=== PATIENT | female | born 1945 | race Caucasian/White ===

== ENCOUNTER 2020-04-23 05:09 | Emergency (ER) | payer MEDICARE ==
--- NOTE | 2020-04-23 05:37 | EDM.PDOC ---
ED HPI GENERAL MEDICAL PROBLEM - General Chief Complaint: Respiratory Problem Stated Complaint: [facility] Time Seen by Provider: 04/23/20 05:31 - History of Present Illness INITIAL COMMENTS - FREE TEXT/NARRATIVE: 74-year-old female presents the emergency room brought in by EMS with worsening cough. [facility] as she has had worsening cough for the last month and she had chest pain yesterday. Patient is not able to give much of a history she answers simple questions. She has schizoaffective disorder bipolar disease posttraumatic stress disorder mixed obsessional thoughts and acts. And sometim es keeping her on task with questions is exceedingly difficult. Her biggest complaint is she cannot clear her throat. She was found to be hypoxic with O2 sats in the 80s on 2 L of room air. She is normally on 2 L of room air. Here in the emergency department she is satting okay on 2 L of room air but she has a really moist cough. Middle Chest Pain Score (Numeric/FACES): 3 - Related Data Allergies Allergy/AdvReac Type Severity Reaction Status Date / Time acyclovir Allergy Severe Cannot Verified 04/23/20 05:27 Remember risperidone [From Risperdal] Allergy Severe Cannot Verified 04/23/20 05:27 Remember Sulfa (Sulfonamide Allergy Severe Cannot Verified 04/23/20 05:27 Antibiotics) Remember sulfamethoxazole Allergy Severe Cannot Verified 04/23/20 05:27 [From Bactrim] Remember trimethoprim [From Bactrim] Allergy Severe Cannot Verified 04/23/20 05:27 Remember Home Meds: Home Meds Albuterol Sulfate [Albuterol Sulfate Hfa] 2 puff INH TID PRN 04/23/20 [History] Benzonatate [Tessalon [place]] 100 mg PO TID PRN 04/23/20 [History] Cefdinir [Omnicef] 300 mg PO Q12H #12 cap 04/23/20 [Rx] Doxycycline Hyclate [Vibramycin] 100 mg PO BID #14 cap 04/23/20 [Rx] Famotidine [Pepcid] 20 mg PO DAILY 04/23/20 [History] Lutein/Minerals/Vit A,C & E [Ocuvite] 1 tab PO DAILY 04/23/20 [History] amLODIPine [Norvasc] 5 mg PO DAILY 04/23/20 [History] Social & Family History - Tobacco Use Smoking Status *Q: Never Smoker - Recreational Drug Use Recreational Drug Use: No ED ROS GENERAL - Review of Systems Review Of Systems: See Below Constitutional: Reports: Fever HEENT: Reports: No Symptoms Respiratory: Reports: Cough, Sputum Cardiovascular: Reports: Chest Pain (By history had chest pain yesterday) GI/Abdominal: Reports: Abdominal Pain. Denies: No Symptoms, Constipation, Diarrhea, Nausea, Vomiting : Reports: No Symptoms Musculoskeletal: Reports: No Symptoms Skin: Reports: No Symptoms Neurological: Reports: Confusion. Denies: Dizziness, Headache Psychiatric: Reports: Agitation ED EXAM, GENERAL - Physical Exam Exam: See Below Exam Limited By: Other (Patient's difficulty cooperating) General Appearance: Alert, No Apparent Distress, Other (She is satting reasonably well on 2 L of O2 at 93% she is afebrile) Eye Exam: Bilateral Eye: Normal Inspection Ears: Normal External Exam, Normal Canal, Hearing Grossly Normal, Normal TMs Nose: Normal Inspection, Normal Mucosa, No Blood Throat/Mouth: Normal Inspection, Normal Lips, Normal Gums, Normal Oropharynx, Normal Voice, No Airway Compromise Head: Atraumatic, Normocephalic Neck: Normal Inspection, Supple, Non-Tender, Full Range of Motion Respiratory/Chest: No Respiratory Distress, Lungs Clear, Normal Breath Sounds Cardiovascular: Normal Peripheral Pulses, Regular Rate, Rhythm, Other (I am uncertain if the patient has a murmur she had a difficulty not talking when I was listening to her) GI/Abdominal: Normal Bowel Sounds, Soft, Other (States she had some tenderness with palpation). No: Guarding, Rigid, Rebound Back Exam: Normal Inspection. No: CVA Tenderness (L), CVA Tenderness (R) Extremities: Normal Inspection, Pedal Edema ( ) EKG INTERPRETATION EKG Date: 04/23/20 Rhythm: NSR Rate (Beats/Min): 55 [place]: Normal P-Wave: Present QRS: Normal ST-T: Other (Nonspecific nondiagnostic changes) QT: Normal Comparison: NA - No Prior EKG EKG Interpretation Comments: Borderline EKG Course - Vital Signs Last Recorded V/S: Last Vital Signs Temp 36.4 C 04/23/20 05:16 Pulse 55 L 04/23/20 05:16 Resp 20 04/23/20 05:16 BP 138/72 04/23/20 05:16 Pulse Ox 92 L 04/23/20 05:45 - Orders/Labs/Meds Orders: Active Orders 24 hr Category Date Time Status EKG Documentation Completion [RC] ASDIRECTED Care 04/23/20 05:30 Active RT Aerosol Therapy [RC] ASDIRECTED Care 04/23/20 05:38 Active Chest 1V Frontal [CR] Stat Exams 04/23/20 05:22 Taken CULTURE BLOOD [BC] Stat Lab 04/23/20 07:05 Ordered CULTURE BLOOD [BC] Stat Lab 04/23/20 07:05 Ordered cefTRIAXone [Rocephin] 2 gm Med 04/23/20 07:15 Active Sodium Chloride 0.9% [Normal Saline] 100 ml IV Q24H Blood Culture x2 Reflex Set [OM.PC] Stat Oth 04/23/20 07:04 Ordered EKG 12 Lead [EK] Stat Ther 04/23/20 05:30 Ordered Medication Orders Ceftriaxone Sodium 2 gm/ (Sodium Chloride) 100 mls @ 200 mls/hr IV Q24H KELLY Last Admin: 04/23/20 07:47 Dose: 200 mls/hr Documented by: TANI Labs: Laboratory Tests 04/23/20 04/23/20 04/23/20 Range/Units 05:10 05:15 05:15 WBC 3.24 L (3.98-10.04) K/mm3 RBC 3.81 L (3.98-5.22) M/mm3 Hgb 10.6 L (11.2-15.7) gm/dl Hct 34.5 (34.1-44.9) % MCV 90.6 (79.4-94.8) fl MCH 27.8 (25.6-32.2) pg MCHC 30.7 L (32.2-35.5) g/dl RDW Std Deviation 61.0 H (36.4-46.3) fL Plt Count 93 L (182-369) K/mm3 MPV 9.9 (9.4-12.3) fl Neut % (Auto) 46.6 (34.0-71.1) % Lymph % (Auto) 38.9 (19.3-51.7) % White % (Auto) 13.0 H (4.7-12.5) % Eos % (Auto) 0.9 (0.7-5.8) Baso % (Auto) 0.3 (0.1-1.2) % Neut # (Auto) 1.51 L (1.56-6.13) K/mm3 Lymph # (Auto) 1.26 (1.18-3.74) K/mm3 White # (Auto) 0.42 H (0.24-0.36) K/mm3 Eos # (Auto) 0.03 L (0.04-0.36) K/mm3 Baso # (Auto) 0.01 (0.01-0.08) K/mm3 Manual Slide Review Abnormal smear Sodium 133 L (136-145) mEq/L Potassium 4.2 (3.5-5.1) mEq/L Chloride 100 (98-107) mEq/L Carbon Dioxide 29 (21-32) mEq/L Anion Gap 8.2 (5-15) BUN 21 H (7-18) mg/dL Creatinine 1.1 H (0.55-1.02) mg/dL Est Cr Clr Drug Dosing 43.28 mL/min Estimated GFR (MDRD) 49 (>60) mL/min BUN/Creatinine Ratio 19.1 H (14-18) Glucose 95 (83-115) mg/dL Calcium 9.2 (8.5-10.1) mg/dL Total Bilirubin 0.3 (0.2-1.0) mg/dL AST 32 (15-37) U/L ALT 34 (14-59) U/L Alkaline Phosphatase 95 (46-116) U/L Troponin I 0.023 (0.00-0.056) ng/mL NT-Pro-B Natriuret Pep (0-125) pg/mL Total Protein 9.9 H (6.4-8.2) g/dl Albumin 1.9 L (3.4-5.0) g/dl Globulin 8.0 gm/dL Albumin/Globulin Ratio 0.2 L (1-2) Lipase (73-393) U/L Urine Color Yellow (Yellow) Urine Appearance Slt cloudy H (Clear) Urine pH 6.5 (5.0-8.0) Ur Specific [place] 1.020 (1.005-1.030) Urine Protein Negative (Negative) Urine Glucose (UA) Negative (Negative) Urine Ketones Negative (Negative) Urine Occult Blood Trace-intact H (Negative) Urine Nitrite Negative (Negative) Urine Bilirubin Negative (Negative) Urine Urobilinogen 0.2 (0.2-1.0) Ur Leukocyte Esterase 2+ H (Negative) Urine RBC Not seen (0-5) /hpf Urine WBC 10-20 H (0-5) /hpf Urine WBC Clumps Rare (NOT SEEN) /hpf Ur Epithelial Cells Not seen (0-5) /hpf Urine Bacteria Few (FEW) /hpf Urine Mucus Not seen (FEW) /hpf 04/23/20 04/23/20 Range/Units 05:15 05:15 WBC (3.98-10.04) K/mm3 RBC (3.98-5.22) M/mm3 Hgb (11.2-15.7) gm/dl Hct (34.1-44.9) % MCV (79.4-94.8) fl MCH (25.6-32.2) pg MCHC (32.2-35.5) g/dl RDW Std Deviation (36.4-46.3) fL Plt Count (182-369) K/mm3 MPV (9.4-12.3) fl Neut % (Auto) (34.0-71.1) % Lymph % (Auto) (19.3-51.7) % White % (Auto) (4.7-12.5) % Eos % (Auto) (0.7-5.8) Baso % (Auto) (0.1-1.2) % Neut # (Auto) (1.56-6.13) K/mm3 Lymph # (Auto) (1.18-3.74) K/mm3 White # (Auto) (0.24-0.36) K/mm3 Eos # (Auto) (0.04-0.36) K/mm3 Baso # (Auto) (0.01-0.08) K/mm3 Manual Slide Review Sodium (136-145) mEq/L Potassium (3.5-5.1) mEq/L Chloride (98-107) mEq/L Carbon Dioxide (21-32) mEq/L Anion Gap (5-15) BUN (7-18) mg/dL Creatinine (0.55-1.02) mg/dL Est Cr Clr Drug Dosing mL/min Estimated GFR (MDRD) (>60) mL/min BUN/Creatinine Ratio (14-18) Glucose (83-115) mg/dL Calcium (8.5-10.1) mg/dL Total Bilirubin (0.2-1.0) mg/dL AST (15-37) U/L ALT (14-59) U/L Alkaline Phosphatase (46-116) U/L Troponin I (0.00-0.056) ng/mL NT-Pro-B Natriuret Pep 1265 H (0-125) pg/mL Total Protein (6.4-8.2) g/dl Albumin (3.4-5.0) g/dl Globulin gm/dL Albumin/Globulin Ratio (1-2) Lipase 122 (73-393) U/L Urine Color (Yellow) Urine Appearance (Clear) Urine pH (5.0-8.0) Ur Specific [place] (1.005-1.030) Urine Protein (Negative) Urine Glucose (UA) (Negative) Urine Ketones (Negative) Urine Occult Blood (Negative) Urine Nitrite (Negative) Urine Bilirubin (Negative) Urine Urobilinogen (0.2-1.0) Ur Leukocyte Esterase (Negative) Urine RBC (0-5) /hpf Urine WBC (0-5) /hpf Urine WBC Clumps (NOT SEEN) /hpf Ur Epithelial Cells (0-5) /hpf Urine Bacteria (FEW) /hpf Urine Mucus (FEW) /hpf Meds: Medications Generic Name Dose Route Start Last Admin Trade Name Freq PRN Reason Stop Dose Admin Ceftriaxone Sodium 2 gm/ 100 mls @ 200 mls/hr 04/23/20 07:15 04/23/20 07:47 Sodium Chloride IV 200 mls/hr Q24H KELLY Administration Discontinued Medications Generic Name Dose Route Start Last Admin Trade Name Freq PRN Reason Stop Dose Admin Albuterol/Ipratropium 3 ml 04/23/20 05:38 04/23/20 05:45 Duoneb 3.0-0.5 Mg/3 Ml NEB 04/23/20 05:39 3 ml ONETIME ONE Administration - Re-Assessments/Exams Free Text/Narrative Re-Assessment/Exam: 04/23/20 08:43 Patient's chest x-ray was concerning for atelectasis and infiltrate in both lower lobes right much worse than left. No evidence of pulmonary congestion with her worsening O2 saturation will assume this is developing pneumonia. Her d-dimer is over 1200 I do not have a baseline for her. At this point the patient received a gram of Rocephin after blood cultures obtained. [facility]ip[facility]f. Milligrams twice daily and doxycycline 100 mg twice daily for a week. We did discuss the disposition with [facility] and they advised as he had a code sheet she had a COVID checked on Thursday and this does not need to be repeated. Departure - Departure Time of Disposition: 08:45 Disposition: DC/Tfer to SNF 03 Clinical Impression: Pneumonia - Discharge Information Prescriptions: Cefdinir [Omnicef] 300 mg PO Q12H #12 cap Doxycycline Hyclate [Vibramycin] 100 mg PO BID #14 cap Instructions: Healthcare-Associated Pneumonia, Community-Acquired Pneumonia, Adult Referrals: Matt Rivas MD [Primary Care Provider] - Forms: ED Department Discharge Additional Instructions: Return to the emergency room with any questions problems or worsening symptoms. Take the antibiotics as directed Continue O2 at 2 L/min titrate if less than 92% to keep greater than 92% Follow-up with regular healthcare provider on Thursday or . Hold the lutein minerals and vitamins while the patient is taken doxycycline. Sepsis Event Note (ED) - Evaluation Sepsis Screening Result: No Definite Risk - Focused Exam Vital Signs: Vital Signs Temp Pulse Resp BP Pulse Ox Pulse Ox 04/23/20 05:45 92 L 04/23/20 05:16 36.4 C 55 L 20 138/72 93 L - My Orders Last 24 Hours: My Active Orders 04/23/20 05:22 Chest 1V Frontal [CR] Stat 04/23/20 05:30 EKG Documentation Completion [RC] ASDIRECTED EKG 12 Lead [EK] Stat 04/23/20 05:38 RT Aerosol Therapy [RC] ASDIRECTED 04/23/20 07:04 Blood Culture x2 Reflex Set [OM.PC] Stat 04/23/20 07:05 CULTURE BLOOD [BC] Stat CULTURE BLOOD [BC] Stat 04/23/20 07:15 cefTRIAXone [Rocephin] 2 gm Sodium Chloride 0.9% [Normal Saline] 100 ml IV Q24H - Assessment/Plan Last 24 Hours: My Active Orders 04/23/20 05:22 Chest 1V Frontal [CR] Stat 04/23/20 05:30 EKG Documentation Completion [RC] ASDIRECTED EKG 12 Lead [EK] Stat 04/23/20 05:38 RT Aerosol Therapy [RC] ASDIRECTED 04/23/20 07:04 Blood Culture x2 Reflex Set [OM.PC] Stat 04/23/20 07:05 CULTURE BLOOD [BC] Stat CULTURE BLOOD [BC] Stat 04/23/20 07:15 cefTRIAXone [Rocephin] 2 gm Sodium Chloride 0.9% [Normal Saline] 100 ml IV Q24H
[2020-04-23] MEDS ORDERED: Albuterol/Ipratropium 3.0-0.5 MG/3 ML Neb Soln NEB ONE (05:38)
[2020-04-23] MEDS ORDERED: cefTRIAXone 2 GM in Sodium Chloride 0.9% 100 ML IV SCH (07:15)
--- NOTE | 2020-04-23 13:19 | CR ---
Chest: Portable view of the chest was obtained. Comparison: No previous chest x-ray. Heart size and mediastinum are within normal limits for portable technique. Increased density within both lung bases is noted. Upper lungs are clear. Bony structures are grossly intact. Impression: 1. Increased density within both lung bases. Findings could represent bibasilar atelectasis as well as small bilateral bibasilar areas of pneumonia. Diagnostic code #3 This report was dictated in MDT
== END 2020-04-23 09:27 ==
LOC: JD.ED 05:09
DX: J18.9 Pneumonia, unspecified organism (principal); Z88.8 Allergy status to other drugs, medicaments and biological substances; Z88.2 Allergy status to sulfonamides
CPT/HCPCS: 36415; 71045; 80053; 81001; 83690; 83880; 84484; 85025; 87040; 93005; 94640; 96365; 99284; J0696; J7050; 93010; 99283; J7620-GY

== ENCOUNTER 2020-06-03 18:19 | Emergency (ER) | payer MEDICARE, OTHER ==
[2020-06-03] MEDS ORDERED: Sodium Chloride 0.9% 10 ML Syringe FLUSH PRN (18:32)
[2020-06-03] MEDS ORDERED: Acetaminophen 325 MG Tab PO ONE (18:36)
--- NOTE | 2020-06-03 18:39 | EDM.PDOC ---
<Stan Merrill - Last Filed: 06/03/20 18:42> ED HPI GENERAL MEDICAL PROBLEM - General Chief Complaint: Respiratory Problem Stated Complaint: [facility] Time Seen by Provider: 06/03/20 18:32 Source of Information: Reports: Patient, EMS, Longterm Records History Limitations: Reports: No Limitations - History of Present Illness INITIAL COMMENTS - FREE TEXT/NARRATIVE: The patient presents by [facility] from [facility] for cough, fever, shortness of breath, confusion and body aches. She was checked on but they do not have results back. She was doing good until this afternoon and she got much worse. She is in the correction for geriatric psych issues. She does not smoke. She has no history of asthma or COPD. She did have pneumonia on April 23. She tested negative for COVID at that time. She has a history of schizoaffective disorder, bipolar disorder, post traumatic stress disorder and mixed obsessed thoughts. She was put on oxygen at the correction and her oxygen saturations were in the high 80s. EMS put her on a simple mask and he oxygen saturations were improved to 94%. Her temp was 102 at the correction. Onset: Gradual Duration: Day(s): Severity: Moderate Improves with: Reports: None Worsens with: Reports: None Associated Symptoms: Reports: Cough, Fever/Chills, Headaches, Shortness of Breath. Denies: Chest Pain, Nausea/Vomiting - Related Data Allergies Allergy/AdvReac Type Severity Reaction Status Date / Time acyclovir Allergy Severe Cannot Verified 04/23/20 05:27 Remember risperidone [From Risperdal] Allergy Severe Cannot Verified 04/23/20 05:27 Remember Sulfa (Sulfonamide Allergy Severe Cannot Verified 04/23/20 05:27 Antibiotics) Remember sulfamethoxazole Allergy Severe Cannot Verified 04/23/20 05:27 [From Bactrim] Remember trimethoprim [From Bactrim] Allergy Severe Cannot Verified 04/23/20 05:27 Remember hydroxyzine Allergy Cannot Verified 06/03/20 18:29 Remember Home Meds: Home Meds Albuterol Sulfate [Albuterol Sulfate Hfa] 2 puff INH TID PRN 04/23/20 [History] Benzonatate [Tessalon Perle] 100 mg PO TID PRN 04/23/20 [History] Cefdinir [Omnicef] 300 mg PO Q12H #12 cap 04/23/20 [Rx] Doxycycline Hyclate [Vibramycin] 100 mg PO BID #14 cap 04/23/20 [Rx] Famotidine [Pepcid] 20 mg PO DAILY 04/23/20 [History] Lutein/Minerals/Vit A,C & E [Ocuvite] 1 tab PO DAILY 04/23/20 [History] amLODIPine [Norvasc] 5 mg PO DAILY 04/23/20 [History] Past Medical History HEENT History: Reports: Other (See Below) Other HEENT History: dry eyes Cardiovascular History: Reports: Hypertension Gastrointestinal History: Reports: Chronic Constipation, GERD, Hemorrhoids Genitourinary History: Reports: Other (See Below) Other Genitourinary History: unspecified disorder of urinary system Psychiatric History: Reports: Bipolar, PTSD, Schizophrenia, Other (See Below) Other Psychiatric History: mixed obsessional thoughts and acts Hematologic History: Reports: Anemia, Other (See Below) Other Hematologic History: Vitamin D deficiency ED ROS GENERAL - Review of Systems Review Of Systems: See Below Constitutional: Reports: Fever, Chills HEENT: Reports: No Symptoms Respiratory: Reports: Shortness of Breath, Cough Cardiovascular: Reports: No Symptoms Endocrine: Reports: No Symptoms GI/Abdominal: Reports: No Symptoms : Reports: No Symptoms Musculoskeletal: Reports: No Symptoms Skin: Reports: No Symptoms Neurological: Reports: No Symptoms ED EXAM, GENERAL - Physical Exam Exam: See Below Exam Limited By: No Limitations General Appearance: Alert, No Apparent Distress Ears: Normal External Exam Nose: Normal Inspection Head: Atraumatic, Normocephalic Neck: Normal Inspection, Supple, Non-Tender Respiratory/Chest: No Respiratory Distress, Rhonchi Cardiovascular: Regular Rate, Rhythm, No Edema, No Murmur GI/Abdominal: Soft, Non-Tender, No Organomegaly, No Mass Back Exam: Normal Inspection Extremities: Normal Inspection Course - Re-Assessments/Exams Free Text/Narrative Re-Assessment/Exam: 06/03/20 18:48 I ordered oxygen, CXR, IV saline lock, labs, blood cultures, COVID 19, and lactic acid. It is change of shift. Dr Handy to take over. Departure - Departure Disposition: DC/Tfer to [facility] 02 Clinical Impression: Nosocomial pneumonia - Discharge Information Referrals: Matt Rivas MD [Primary Care Provider] - Forms: ED Department Discharge <Dale Handy - Last Filed: 06/03/20 23:25> ED HPI GENERAL MEDICAL PROBLEM Generalized Pain Score (Numeric/FACES): 8 ED EXAM, GENERAL - Physical Exam Eye Exam: Bilateral Eye: EOMI, Normal Inspection Ears: Hearing Grossly Normal Respiratory/Chest: No Accessory Muscle Use. No: Decreased Breath Sounds, Crackles, Wheezing, Stridor, Prolonged Expiration Cardiovascular: Normal Peripheral Pulses, No Gallop, No JVD Peripheral Pulses: 3+: Radial (L), Radial (R) Extremities: Normal Range of Motion, No Pedal Edema, Normal Capillary Refill Neurological: No Motor/Sensory Deficits Skin Exam: Warm (feels febrile), Intact, Normal Color, No Rash Course - Re-Assessments/Exams Free Text/Narrative Re-Assessment/Exam: 06/03/20 19:54 As above, the patient was brought from [facility] by EMS for a rapid decline in her condition this evening, with a cough, apparent dyspnea, and fever. Here in the ED, she is found to be tachypneic and febrile at 102.7 degrees, with an oxygen saturation of 85% on room air, 95% on 4 L of oxygen per nasal cannula. She has a rattly sounding cough that she does not appear to be clearing well. Her lungs are rhonchorous on auscultation. No other significant findings on examination. A work-up was ordered by Dr. Merrill that includes blood work, 2 sets of blood cultures, an ABG, a portable chest x-ray, and a swab for the SARS-CoV-2 virus. I have added a magnesium level and a urinalysis; Pat BASS informed me that she had cleaned the patient well, and that the patient had voided on her own. 06/03/20 20:25 Portable chest x-ray is read by Dr. Rogers as: 1. Increasing density within both lung bases most likely representing worsening pneumonia. 2. No other acute finding is seen. The patient's CBC is remarkable for thrombocytopenia of 71,000, with the remainder of her CBC being unremarkable. Her CMP is remarkable for a sodium mildly depressed at 132, 8 BUN slightly elevated at 23 with a Cr normal at 1.0, and an AST slightly elevated at 41 with an ALT normal at 34, and the remainder of her CMP being unremarkable. Her magnesium level is within normal limits at 1.8. Her lactic acid level is within normal limits at 0.8. Her CRP is within normal limits at 1.0. Her CPK is within normal limits at 46. Her ferritin is within normal limits at 64. Her LDH is within normal limits at 132. Her D-dimer is modestly elevated at 1.09. Her PT is slightly elevated at 12.1 with an INR of 1.13, and her PTT is mildly elevated at 39. Her ABG represents a mixed mild acute respiratory alkalosis with metabolic alkalosis, and hypoxemia. The patient's urinalysis and a swab for the SARS-CoV-2 virus are still pending. Based on the above, I have ordered a CT angiogram of the chest to evaluate for a pulmonary embolus. The added benefit is a better view of the bibasilar opacities; while the patient has a fever, cough, and worsening bibasilar opacities, she does not have an elevated WBC count or CRP, raising concern about the diagnosis of pneumonia. 06/03/20 20:51 The patient's urinalysis is remarkable for trace occult blood with 10-20 RBCs, 1+ leukocyte esterase with 5-10 WBCs, nitrate negative with few bacteria, and 0- 5 squamous epithelial cells. I have ordered a urine culture, but I do not feel that her urinalysis is consistent enough with a UTI to warrant antibiotic treatment at this time. 06/03/20 22:05 The patient swab for the SARS-CoV-[address] virus has [address] angiogram of the chest is read by Dr. Rogers as: 1. Increased density within both lung bases as well as lesser change within the upper lungs. Findings are most likely infectious in etiology. Please exclude the patient as having Covid-19. 2. No findings of pulmonary embolism are seen. 3. Slightly prominent lymph nodes within the mediastinum most likely reactive. Asymmetric nodule within the inferior left hilar region measuring 2.6 cm. Uncertain if this is due to reactive lymph node or represents neoplastic nodule. Note: If patient's condition improves, recommend repeat chest CT study in 3-4 months. Based on the above, I will start the patient on IV vancomycin, Levaquin, and Zosyn. I believe the patient should be hospitalized, however, we are on complete diversion at this facility, therefore the patient will have to be transferred to [place]. 06/03/20 22:20 Case discussed with Maddy at [facility] at 22:13. Case then discussed with Dr. Dennis, Hospitalist at [facility], at 22:18. She accepted the patient for admission to their facility. The patient will be transported by ground ambulance. 06/03/20 22:38 The portable chest x-ray and CT angiogram of the chest images have been pushed to [facility]. Departure - Departure Time of Disposition: 22:22 Condition: Fair - Discharge Information *PRESCRIPTION DRUG MONITORING PROGRAM REVIEWED*: Not Applicable *COPY OF PRESCRIPTION DRUG MONITORING REPORT IN PATIENT ROBBIN: Not Applicable <Celestine Muñoz - Last Filed: 06/04/20 07:44> Course - Vital Signs Last Recorded V/S: Last Vital Signs Temp 39.9 C H 06/03/20 20:45 Pulse 90 06/03/20 20:45 Resp 24 H 06/03/20 20:45 BP 156/76 H 06/03/20 18:25 Pulse Ox 92 L 06/03/20 20:45 - Orders/Labs/Meds Orders: Active Orders 24 hr Category Date Time Status CULTURE BLOOD [BC] Stat Lab 06/03/20 19:00 Received CULTURE BLOOD [BC] Stat Lab 06/03/20 19:12 Received CULTURE URINE [RM] Stat Lab 06/03/20 19:40 Received Blood Culture x2 Reflex Set [OM.PC] Stat Oth 06/03/20 18:34 Ordered Peripheral IV Insertion Adult [OM.PC] Stat Oth 06/03/20 18:32 Ordered Labs: Laboratory Tests 06/03/20 06/03/20 06/03/20 Range/Units 19:00 19:12 19:12 WBC 4.37 (3.98-10.04) K/mm3 RBC 4.14 (3.98-5.22) M/mm3 Hgb 11.7 (11.2-15.7) gm/dl Hct 36.9 (34.1-44.9) % MCV 89.1 (79.4-94.8) fl MCH 28.3 (25.6-32.2) pg MCHC 31.7 L (32.2-35.5) g/dl RDW Std Deviation 58.5 H (36.4-46.3) fL Plt Count 71 L (182-369) K/mm3 MPV 10.7 (9.4-12.3) fl Neut % (Auto) 80.6 H (34.0-71.1) % Lymph % (Auto) 12.8 L (19.3-51.7) % [place] % (Auto) 5.7 (4.7-12.5) % Eos % (Auto) 0 L (0.7-5.8) Baso % (Auto) 0.2 (0.1-1.2) % Neut # (Auto) 3.52 (1.56-6.13) K/mm3 Lymph # (Auto) 0.56 L (1.18-3.74) K/mm3 [place] # (Auto) 0.25 (0.24-0.36) K/mm3 Eos # (Auto) 0.00 L (0.04-0.36) K/mm3 Baso # (Auto) 0.01 (0.01-0.08) K/mm3 Manual Slide Review Abnormal smear PT 12.1 H (9.7-11.7) SECONDS INR 1.13 APTT 39 H (22-31) SECONDS D-Dimer, Quantitative 1.09 H (0.19-0.50) mg/L Puncture Site Lt radial ABG pH 7.44 (7.35-7.45) ABG pCO2 36.9 (35.0-45.0) mmHg ABG pO2 62.0 L (80.0-100.0) mmHg ABG HCO3 24.7 (22.0-26.0) meq/L ABG O2 Saturation 89.5 L (96.0-97.0) % ABG Base Excess 1.2 (-2-2.0) A-a Gradient 177 mmHg O2 Delivery Device Nasal cannula Oxygen Flow Rate 5.0 FiO2 40.00 (21.00-100.00) % Sodium (136-145) mEq/L Potassium (3.5-5.1) mEq/L Chloride (98-107) mEq/L Carbon Dioxide (21-32) mEq/L Anion Gap (5-15) BUN (7-18) mg/dL Creatinine (0.55-1.02) mg/dL Est Cr Clr Drug Dosing Estimated GFR (MDRD) (>60) mL/min BUN/Creatinine Ratio (14-18) Glucose (83-115) mg/dL Lactic Acid (0.4-2.0) mmol/L Calcium (8.5-10.1) mg/dL Magnesium (1.8-2.4) mg/dl Ferritin (8-252) ng/ml Total Bilirubin (0.2-1.0) mg/dL AST (15-37) U/L ALT (14-59) U/L Alkaline Phosphatase (46-116) U/L Lactate Dehydrogenase (81-234) U/L Creatine Kinase (26-192) U/L C-Reactive Protein (<1.0) mg/dL Total Protein (6.4-8.2) g/dl Albumin (3.4-5.0) g/dl Globulin gm/dL Albumin/Globulin Ratio (1-2) Urine Color (Yellow) Urine Appearance (Clear) Urine pH (5.0-8.0) Ur Specific [place] (1.005-1.030) Urine Protein (Negative) Urine Glucose (UA) (Negative) Urine Ketones (Negative) Urine Occult Blood (Negative) Urine Nitrite (Negative) Urine Bilirubin (Negative) Urine Urobilinogen (0.2-1.0) Ur Leukocyte Esterase (Negative) Urine RBC (0-5) /hpf Urine WBC (0-5) /hpf Ur Squamous Epith Cells (0-5) /hpf Urine Bacteria (FEW) /hpf Urine Mucus (FEW) /hpf SARS-CoV-2 RNA (DENICE) (NEGATIVE) 06/03/20 06/03/20 06/03/20 Range/Units 19:12 19:12 19:12 WBC (3.98-10.04) K/mm3 RBC (3.98-5.22) M/mm3 Hgb (11.2-15.7) gm/dl Hct (34.1-44.9) % MCV (79.4-94.8) fl MCH (25.6-32.2) pg MCHC (32.2-35.5) g/dl RDW Std Deviation (36.4-46.3) fL Plt Count (182-369) K/mm3 MPV (9.4-12.3) fl Neut % (Auto) (34.0-71.1) % Lymph % (Auto) (19.3-51.7) % [place] % (Auto) (4.7-12.5) % Eos % (Auto) (0.7-5.8) Baso % (Auto) (0.1-1.2) % Neut # (Auto) (1.56-6.13) K/mm3 Lymph # (Auto) (1.18-3.74) K/mm3 [place] # (Auto) (0.24-0.36) K/mm3 Eos # (Auto) (0.04-0.36) K/mm3 Baso # (Auto) (0.01-0.08) K/mm3 Manual Slide Review PT (9.7-11.7) SECONDS INR APTT (22-31) SECONDS D-Dimer, Quantitative (0.19-0.50) mg/L Puncture Site ABG pH (7.35-7.45) ABG pCO2 (35.0-45.0) mmHg ABG pO2 (80.0-100.0) mmHg ABG HCO3 (22.0-26.0) meq/L ABG O2 Saturation (96.0-97.0) % ABG Base Excess (-2-2.0) A-a Gradient mmHg O2 Delivery Device Oxygen Flow Rate FiO2 (21.00-100.00) % Sodium 132 L (136-145) mEq/L Potassium 4.1 (3.5-5.1) mEq/L Chloride 99 (98-107) mEq/L Carbon Dioxide 26 (21-32) mEq/L Anion Gap 11.1 (5-15) BUN 23 H (7-18) mg/dL Creatinine 1.0 (0.55-1.02) mg/dL Est Cr Clr Drug Dosing TNP Estimated GFR (MDRD) 55 (>60) mL/min BUN/Creatinine Ratio 23.0 H (14-18) Glucose 98 (83-115) mg/dL Lactic Acid 0.8 (0.4-2.0) mmol/L Calcium 9.1 (8.5-10.1) mg/dL Magnesium (1.8-2.4) mg/dl Ferritin 64 (8-252) ng/ml Total Bilirubin 0.3 (0.2-1.0) mg/dL AST 41 H (15-37) U/L ALT 34 (14-59) U/L Alkaline Phosphatase 107 (46-116) U/L Lactate Dehydrogenase 132 (81-234) U/L Creatine Kinase 46 (26-192) U/L C-Reactive Protein 1.0 (<1.0) mg/dL Total Protein 10.2 H (6.4-8.2) g/dl Albumin 1.9 L (3.4-5.0) g/dl Globulin 8.3 gm/dL Albumin/Globulin Ratio 0.2 L (1-2) Urine Color (Yellow) Urine Appearance (Clear) Urine pH (5.0-8.0) Ur Specific [place] (1.005-1.030) Urine Protein (Negative) Urine Glucose (UA) (Negative) Urine Ketones (Negative) Urine Occult Blood (Negative) Urine Nitrite (Negative) Urine Bilirubin (Negative) Urine Urobilinogen (0.2-1.0) Ur Leukocyte Esterase (Negative) Urine RBC (0-5) /hpf Urine WBC (0-5) /hpf Ur Squamous Epith Cells (0-5) /hpf Urine Bacteria (FEW) /hpf Urine Mucus (FEW) /hpf SARS-CoV-2 RNA (DENICE) (NEGATIVE) 06/03/20 06/03/20 06/03/20 Range/Units 19:12 19:40 19:57 WBC (3.98-10.04) K/mm3 RBC (3.98-5.22) M/mm3 Hgb (11.2-15.7) gm/dl Hct (34.1-44.9) % MCV (79.4-94.8) fl MCH (25.6-32.2) pg MCHC (32.2-35.5) g/dl RDW Std Deviation (36.4-46.3) fL Plt Count (182-369) K/mm3 MPV (9.4-12.3) fl Neut % (Auto) (34.0-71.1) % Lymph % (Auto) (19.3-51.7) % [place] % (Auto) (4.7-12.5) % Eos % (Auto) (0.7-5.8) Baso % (Auto) (0.1-1.2) % Neut # (Auto) (1.56-6.13) K/mm3 Lymph # (Auto) (1.18-3.74) K/mm3 [place] # (Auto) (0.24-0.36) K/mm3 Eos # (Auto) (0.04-0.36) K/mm3 Baso # (Auto) (0.01-0.08) K/mm3 Manual Slide Review PT (9.7-11.7) SECONDS INR APTT (22-31) SECONDS D-Dimer, Quantitative (0.19-0.50) mg/L Puncture Site ABG pH (7.35-7.45) ABG pCO2 (35.0-45.0) mmHg ABG pO2 (80.0-100.0) mmHg ABG HCO3 (22.0-26.0) meq/L ABG O2 Saturation (96.0-97.0) % ABG Base Excess (-2-2.0) A-a Gradient mmHg O2 Delivery Device Oxygen Flow Rate FiO2 (21.00-100.00) % Sodium (136-145) mEq/L Potassium (3.5-5.1) mEq/L Chloride (98-107) mEq/L Carbon Dioxide (21-32) mEq/L Anion Gap (5-15) BUN (7-18) mg/dL Creatinine (0.55-1.02) mg/dL Est Cr Clr Drug Dosing Estimated GFR (MDRD) (>60) mL/min BUN/Creatinine Ratio (14-18) Glucose (83-115) mg/dL Lactic Acid (0.4-2.0) mmol/L Calcium (8.5-10.1) mg/dL Magnesium 1.8 (1.8-2.4) mg/dl Ferritin (8-252) ng/ml Total Bilirubin (0.2-1.0) mg/dL AST (15-37) U/L ALT (14-59) U/L Alkaline Phosphatase (46-116) U/L Lactate Dehydrogenase (81-234) U/L Creatine Kinase (26-192) U/L C-Reactive Protein (<1.0) mg/dL Total Protein (6.4-8.2) g/dl Albumin (3.4-5.0) g/dl Globulin gm/dL Albumin/Globulin Ratio (1-2) Urine Color Yellow (Yellow) Urine Appearance Clear (Clear) Urine pH 7.0 (5.0-8.0) Ur Specific [place] 1.015 (1.005-1.030) Urine Protein Negative (Negative) Urine Glucose (UA) Negative (Negative) Urine Ketones Negative (Negative) Urine Occult Blood Trace-intact H (Negative) Urine Nitrite Negative (Negative) Urine Bilirubin Negative (Negative) Urine Urobilinogen 0.2 (0.2-1.0) Ur Leukocyte Esterase 1+ H (Negative) Urine RBC 10-20 H (0-5) /hpf Urine WBC 5-10 H (0-5) /hpf Ur Squamous Epith Cells 0-5 (0-5) /hpf Urine Bacteria Few (FEW) /hpf Urine Mucus Few (FEW) /hpf SARS-CoV-2 RNA (DENICE) Negative (NEGATIVE) Meds: Medications Discontinued Medications Generic Name Dose Route Start Last Admin Trade Name Freq PRN Reason Stop Dose Admin Acetaminophen 975 mg 06/03/20 18:36 06/03/20 18:59 Tylenol PO 06/03/20 18:37 975 mg NOW ONE Administration Sodium Chloride 1,000 mls @ 150 mls/hr 06/03/20 20:30 06/03/20 20:43 Normal Saline IV 150 mls/hr ASDIRECTED KELLY Administration Vancomycin HCl 1 gm/ Sodium 250 mls @ 250 mls/hr 06/03/20 22:10 06/03/20 23:13 Chloride IV 06/03/20 23:09 250 mls/hr ONETIME STA Administration Levofloxacin/Dextrose 750 mg/ 150 mls @ 100 mls/hr 06/03/20 22:11 06/03/20 23:12 Premix IV 06/03/20 23:40 100 mls/hr ONETIME STA Administration Piperacillin Sod/Tazobactam 100 mls @ 200 mls/hr 06/03/20 22:12 06/03/20 22:41 Sod 4.5 gm/ Sodium Chloride IV 06/03/20 22:41 200 mls/hr ONETIME ONE Administration Sodium Chloride 1,000 mls @ 100 mls/hr 06/03/20 22:15 Normal Saline IV ASDIRECTED KELLY Iopamidol 100 ml 06/03/20 21:44 06/03/20 22:12 Isovue-370 (76%) IVPUSH 06/03/20 21:45 100 ml ONETIME ONE Administration Sodium Chloride 10 ml 06/03/20 18:32 06/03/20 19:00 Saline Flush FLUSH 10 ml ASDIRECTED PRN Administration Keep Vein Open Sodium Chloride 10 ml 06/03/20 21:44 Saline Flush FLUSH 06/03/20 21:45 ONETIME ONE - Re-Assessments/Exams Free Text/Narrative Re-Assessment/Exam: 06/04/20 07:44 Danielito from the lab called over this morning indicates that 1 of the blood cultures done on Katie last night is growing out gram-positive cocci in chains. This information will be forwarded to [facility] in [place] where the patient was transferred to Sepsis Event Note (ED) - Focused Exam Vital Signs: Vital Signs Temp Pulse Resp Pulse Ox 06/03/20 20:45 39.9 C H 90 24 H 92 L
--- NOTE | 2020-06-03 20:19 | CR ---
Chest: Portable view of the chest was obtained. Comparison: Prior chest x-ray of 04/23/20. Increasing density within both lung bases are noted. Findings most likely due to worsening pneumonia. Upper lungs are clear. Heart size and mediastinum are within normal limits for portable technique. Impression: 1. Increasing density within both lung bases most likely representing worsening pneumonia. 2. No other acute finding is seen. Diagnostic code #3 This report was dictated in MDT
[2020-06-03] MEDS ORDERED: Sodium Chloride 0.9% 1,000 ML IV SCH ×2 (20:30→22:15)
[2020-06-03] MEDS ORDERED: Sodium Chloride 0.9% 10 ML Syringe FLUSH ONE (21:44)
[2020-06-03] MEDS ORDERED: Iopamidol 755 Mg/ML 100 ML Bottle IVPUSH ONE (21:44)
--- NOTE | 2020-06-03 22:00 | CT ---
Addendum: Preliminary report by vRalret was finalized on 06/03/20, 10:54 PM [employer]. This was after final report was available. I have reviewed the preliminary report as well as the final report with no significant discrepancy seen between the 2 reports. --- Addendum1 above dictated on [06/04/2020 06:12] by [Margie Rogers, Swapnil Falcon] --- --- Addendum1 above signed on [06/04/2020 06:14] by [Margie Rogers Hilton J.] --- --- Original report below dictated on [06/03/2020 21:55] by [Margie Rogers Hilton J.] --- --- Original report below signed on [06/03/2020 21:56] by [Margie Rogers, Swapnil Falcon] --- CT chest Technique: Multiple axial sections through the chest were obtained. Intravenous contrast was utilized. Reconstructed coronal and sagittal images were obtained. Findings: Pulmonary arteries are moderately well opacified. No filling defects are seen to indicate definite pulmonary embolism. Aorta shows no aneurysm or dissection. Slight adenopathy is seen within the mediastinum most likely reactive. Enlarged nodule is seen within the inferior left hilar region measuring 2.6 cm. Uncertain if this represents reactive enlarged lymph node or represents a neoplastic lymph node. Diffuse parenchymal densities are seen within both lower lungs. Lesser density within the upper lungs are seen. Bone window settings were reviewed which shows no acute osseous finding. Scattered degenerative changes noted within the spine. Impression: 1. Increased density within both lung bases as well as lesser change within the upper lungs. Findings are most likely infectious in etiology. Please exclude the patient as having Covid 19. 2. No findings of pulmonary embolism are seen. 3. Slightly prominent lymph nodes within the mediastinum most likely reactive. Asymmetric nodule within the inferior left hilar region measuring 2.6 cm. Uncertain if this is due to reactive lymph node or represents neoplastic nodule. Note: If patient's condition improves, recommend repeat chest CT study in 3-4 months. Diagnostic code #9 This report was dictated in MDT --- Addendum1 signed ---
[2020-06-03] MEDS ORDERED: Levofloxacin/Dextrose 5%-Water 750 MG in Premix Bag 1 BAG IV STA (22:11)
[2020-06-03] MEDS ORDERED: Piperacillin/Tazobactam 4.5 GM in Sodium Chloride 0.9% 100 ML IV ONE (22:12)
== END 2020-06-03 23:14 ==
LOC: JD.ED 18:19
DX: J18.9 Pneumonia, unspecified organism (principal); I10 Essential (primary) hypertension; K21.9 Gastro-esophageal reflux disease without esophagitis; Z20.828 Contact with and (suspected) exposure to other viral communicable diseases; Z79.899 Other long term (current) drug therapy; Z88.2 Allergy status to sulfonamides; Z88.3 Allergy status to other anti-infective agents; Z88.8 Allergy status to other drugs, medicaments and biological substances; Y95 Nosocomial condition; R06.02 Shortness of breath
CPT/HCPCS: 36415; 36600; 71045; 71275; 80053; 81001; 82550; 82728; 82803; 83605; 83615; 83735; 85025; 85379; 85610; 85730; 86140; 87040; 87077; 87086; 87088; 87181; 87184; 87186; 96361; 96365; 96367; 96368; 99285; A9270; J1956; J2543; J3370; J7030; J7050; Q9967; U0002

== ENCOUNTER 2020-06-24 13:53 | Emergency (ER) | payer MEDICARE, OTHER ==
--- NOTE | 2020-06-24 14:28 | EDM.PDOC ---
ED HPI GENERAL MEDICAL PROBLEM - General Chief Complaint: Lower Extremity Injury/Pain Stated Complaint: FALL Time Seen by Provider: 06/24/20 14:16 Source of Information: Reports: Patient History Limitations: Reports: No Limitations - History of Present Illness INITIAL COMMENTS - FREE TEXT/NARRATIVE: Patient is a 74-year-old female presenting to the ER from [facility] with complaints of pain to her left lower leg after falling in the shower this morning. Patient states that she was reaching for her shampoo and was not holding onto the bar like she normally is and fell. She denies hitting her head. She is not on any blood thinners. She complains of pain to the lateral aspect of her left lower leg directly below the level of the knee. She denies any pain in her upper legs, hips, upper extremities, back, or head. Patient report from the snf, patient is currently in isolation as she was recently discharged from the hospital in [place] for pneumonia. She has not been positive for COVID, however they are doing routine testing on her to ensure she did not bring COVID into the facility. Patient denies any headache or dizziness at this time. She has not ambulated on her leg since the fall, however, she is normally independent with ambulation and cares. Patient has a history of COPD and is on 2L of oxygen by nasal cannula routinely. Signs on triage were found to be normal. Oxygen was 95% on her home 2 L of oxygen, blood pressure 125/62, respiratory rate 18, temperature 97.3, pulse 89. Left Lower Leg Pain Score (Numeric/FACES): 8 - Related Data Allergies Allergy/AdvReac Type Severity Reaction Status Date / Time acyclovir Allergy Severe Cannot Verified 06/24/20 14:12 Remember risperidone [From Risperdal] Allergy Severe Cannot Verified 06/24/20 14:12 Remember Sulfa (Sulfonamide Allergy Severe Cannot Verified 06/24/20 14:12 Antibiotics) Remember sulfamethoxazole Allergy Severe Cannot Verified 06/24/20 14:12 [From Bactrim] Remember trimethoprim [From Bactrim] Allergy Severe Cannot Verified 06/24/20 14:12 Remember hydroxyzine Allergy Cannot Verified 06/24/20 14:12 Remember Home Meds: Home Meds Albuterol Sulfate [Albuterol Sulfate Hfa] 2 puff INH TID PRN 04/23/20 [History] Benzonatate [Tessalon Perle] 100 mg PO TID PRN 04/23/20 [History] Famotidine [Pepcid] 20 mg PO DAILY 04/23/20 [History] Lutein/Minerals/Vit A,C & E [Ocuvite] 1 tab PO DAILY 04/23/20 [History] amLODIPine [Norvasc] 5 mg PO DAILY 04/23/20 [History] Acetaminophen 325 mg PO Q4H PRN 06/24/20 [History] Benzocaine [Anbesol 20% Maximum Strength] 1 applic PO QID PRN 06/24/20 [History] Benzocaine/Menthol [Cepacol Sore Throat Lozenge] 1 mani PO Q2H PRN 06/24/20 [History] Brexpiprazole [Rexulti] 0.5 mg PO DAILY 06/24/20 [History] Calcium Carbonate [Antacid Extra Strength] 300 mg PO DAILY PRN 06/24/20 [Histo ry] Cyanocobalamin (Vitamin B-12) [Vitamin B-12] 100 mcg PO DAILY 06/24/20 [History] Dextromethorphan/guaiFENesin [Robitussin DM] 10 ml PO Q4H PRN 06/24/20 [History] Ferrous Sulfate 325 mg PO DAILY 06/24/20 [History] Fluticasone Propionate [Flonase Allergy Relief] 2 spray NASBOTH DAILY 06/24/20 [History] Furosemide [Lasix] 20 mg PO DAILY 06/24/20 [History] Hydrocortisone 1 enema RECTAL TID PRN 06/24/20 [History] LORazepam [Lorazepam] 0.5 mg PO TID 06/24/20 [History] Losartan [Cozaar] 100 mg PO DAILY 06/24/20 [History] Lytes/Yerba Lillian [Mouthkote Oral Dovray] 2 spray PO Q4H PRN 06/24/20 [History] Magnesium Hydroxide [Milk of Magnesia] 30 ml PO DAILY PRN 06/24/20 [History] Menthol [Biofreeze] 1 applic TOP BID PRN 06/24/20 [History] Multivitamin No.43/Iron/FA [Vinate Care] 1 tab PO DAILY 06/24/20 [History] Oxymetazoline HCl [Nasal Dovray Original] 1 spray JOHANNY TID 06/24/20 [History] Polyvinyl Alcohol/Povidone/Pf [Refresh Classic Eye Drops] 1 drop EYEBOTH BID 06/24/20 [History] Potassium Chloride [Klor-Con M20] 20 meq PO DAILY 06/24/20 [History] QUEtiapine Fumarate [Seroquel] 50 mg PO Q8H PRN 06/24/20 [History] Tamsulosin [Flomax] 0.4 mg PO BEDTIME 06/24/20 [History] Tiotropium [Spiriva HandiHaler] 1 cap INH DAILY 06/24/20 [History] Triamcinolone Acetonide [Triamcinolone Acetonide 0.1% Oint] 1 applic PO Q5H PRN 06/24/20 [History] polyethylene glycoL 3350 [Miralax] 17 gm PO TID PRN 06/24/20 [History] traMADol [Ultram] 50 mg PO BID PRN 06/24/20 [History] Past Medical History HEENT History: Reports: Other (See Below) Other HEENT History: dry eyes, chronic rhinitis Cardiovascular History: Reports: Hypertension Respiratory History: Reports: COPD Gastrointestinal History: Reports: Chronic Constipation, GERD, Hemorrhoids Genitourinary History: Reports: Other (See Below) Other Genitourinary History: unspecified disorder of urinary system Psychiatric History: Reports: Anxiety, Bipolar, PTSD, Schizophrenia, Other (See Below) 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 Denies: Chills, Fever Eyes: Reports: No Symptoms Ears: Reports: No Symptoms Nose: Reports: No Symptoms Mouth/Throat: Reports: No Symptoms Respiratory: Reports: Cough. Denies: Shortness of Breath, Wheezing Cardiovascular: Reports: No Symptoms GI/Abdominal: Reports: No Symptoms Genitourinary: Reports: No Symptoms Musculoskeletal: Reports: Leg Pain (Left lower leg pain) Skin: Reports: No Symptoms Neurological: Reports: No Symptoms Psychiatric: Reports: No Symptoms ED EXAM, GENERAL - Physical Exam Exam: See Below General Appearance: Alert, WD/WN, No Apparent Distress Head: Atraumatic, Normocephalic Neck: Normal Inspection, Supple, Non-Tender, Full Range of Motion Respiratory/Chest: No Respiratory Distress, Lungs Clear, Normal Breath Sounds, No Accessory Muscle Use, Chest Non-Tender Cardiovascular: Normal Peripheral Pulses, Regular Rate, Rhythm, No Edema, No Gallop, No JVD, No Murmur, No Rub GI/Abdominal: Normal Bowel Sounds, Soft, Non-Tender, No Organomegaly, No Distention, No Abnormal Bruit, No Mass Back Exam: Normal Inspection, Full Range of Motion, NT Extremities: Other (Tenderness to palpation of the lateral aspect of the left lower leg directly below the level of the knee. No obvious swelling, deformity, or ecchymosis.) Neurological: Alert, Oriented, CN II-XII Intact, Normal Cognition, Normal Gait, Normal Reflexes, No Motor/Sensory Deficits Psychiatric: Normal Affect, Normal Mood Skin Exam: Warm, Dry, Intact, Normal Color, No Rash Course - Vital Signs Last Recorded V/S: Last Vital Signs Temp 97.3 F 06/24/20 14:07 Pulse 89 06/24/20 14:07 Resp 18 06/24/20 14:07 BP 125/62 06/24/20 14:07 Pulse Ox 95 06/24/20 14:07 - Orders/Labs/Meds Orders: Active Orders 24 hr Category Date Time Status Chest 1V Frontal [CR] Stat Exams 06/24/20 15:18 Taken Knee 3V Lt [CR] Stat Exams 06/24/20 14:22 Taken Tibia Fibula Lt [CR] Stat Exams 06/24/20 14:22 Taken - Re-Assessments/Exams Free Text/Narrative Re-Assessment/Exam: Patient is a 74-year-old female presenting to the emergency department from [facility] with complaints of pain to her left lower leg after falling in the shower. On exam, there is no swelling, edema, or ecchymosis. I ordered a x-ray of her left tib-fib as well as left knee. 06/24/20 15:20 X-rays of the left tib-fib and left knee were negative for any acute abnormalities. Jeet wrap has been applied to the area of discomfort. Patient voiced concern to me that she could be developing a recurrence of her pneumonia as she has had a slight cough for the last 3 days. She was discharged from the hospital at [facility] about 2 weeks ago after being treated for pneumonia. I have ordered a 1 view chest x-ray per patient's request. 06/24/20 15:53 Chest x-ray is significantly improved from previous on June 03. There is some haziness in the left lower lobe it is difficult to determine if this is atelectasis versus residual pneumonia. Patient is afebrile. Her oxygen saturations are normal on her home oxygen of 2 L via nasal cannula. We will discharge her back to longterm facility with instructions to follow-up with her primary care next week to have a repeat chest x-ray done and for ongo ing management. Return to the ER as needed. Departure - Departure Time of Disposition: 15:54 Disposition: Home, Self-Care 01 Condition: Good Clinical Impression: Cough Contusion of leg, left Qualifiers: Encounter type: initial encounter Qualified Code(s): S80.12XA - Contusion of left lower leg, initial encounter - Discharge Information *PRESCRIPTION DRUG MONITORING PROGRAM REVIEWED*: No *COPY OF PRESCRIPTION DRUG MONITORING REPORT IN PATIENT ROBBIN: No Instructions: Contusion, [id number], Cough, Adult Referrals: Tiffany Castellanos NP [Ordering Only Provider] - Forms: ED Department Discharge Additional Instructions: Katie was seen in the emergency department today for left leg pain after falling in the shower. X-rays were completed of the lower leg as well as her knee and found to have no fractures. Jeet wrap has been applied. She may wear this as needed over the next few days for comfort. Patient also complained of a mild cough for the last 2 days. Chest x-ray was completed. Chest x-ray was d rastically improved from her previous x-ray on 03 June, however there was some faint haziness in the left lower lobe. It is difficult to tell if this is residual pneumonia that has not fully resolved as it can take up to 1 month after treatment for pneumonia to resolve on a chest x-ray. Recommend that she follow-up with her primary care provider later next week for reevaluation. She should return to the emergency department for any new or worsening symptoms of concern. Sepsis Event Note (ED) - Evaluation Sepsis Screening Result: No Definite Risk - Focused Exam Vital Signs: Vital Signs Temp Pulse Resp BP Pulse Ox 06/24/20 14:07 97.3 F 89 18 125/62 95 - My Orders Last 24 Hours: My Active Orders 06/24/20 14:22 Knee 3V Lt [CR] Stat Tibia Fibula Lt [CR] Stat 06/24/20 15:18 Chest 1V Frontal [CR] Stat - Assessment/Plan Last 24 Hours: My Active Orders 06/24/20 14:22 Knee 3V Lt [CR] Stat Tibia Fibula Lt [CR] Stat 06/24/20 15:18 Chest 1V Frontal [CR] Stat
== END 2020-06-24 16:10 | disposition home or self-care (01) ==
LOC: JD.ED 13:53
DX: S80.12XA Contusion of left lower leg, initial encounter (principal); R05 Cough; I10 Essential (primary) hypertension; J44.9 Chronic obstructive pulmonary disease, unspecified; K21.9 Gastro-esophageal reflux disease without esophagitis; F31.9 Bipolar disorder, unspecified; F41.9 Anxiety disorder, unspecified; Z88.8 Allergy status to other drugs, medicaments and biological substances; Z88.2 Allergy status to sulfonamides; Z88.1 Allergy status to other antibiotic agents; Z79.899 Other long term (current) drug therapy; W19.XXXA Unspecified fall, initial encounter
CPT/HCPCS: 71045; 73562-LT; 73590-LT; 99282; 99283-25

== ENCOUNTER 2020-06-27 23:26 | Emergency (ER) | payer MEDICARE ==
--- NOTE | 2020-06-27 23:40 | EDM.PDOC ---
ED HPI GENERAL MEDICAL PROBLEM - General Chief Complaint: Lower Extremity Injury/Pain Stated Complaint: [facility] Time Seen by Provider: 06/27/20 23:33 - History of Present Illness INITIAL COMMENTS - FREE TEXT/NARRATIVE: 74-year-old female presents to the emergency room with right ankle and foot pain. Apparently the patient fell several days ago she was seen here and had left lower extremity pain now she is complaining of right foot and ankle pain. This was not evaluated on her visit here several days ago, however, she did not complain of pain in this area. The other areas where she thought were the isolated injuries at her last visit do not seem to be bothering her at this point. Apparently the patient developed some bruising along the inner aspect of her right ankle since the time of her fall. And now she is complaining of pain in the area. She has not had any recent fevers or chills. She has a chronic cough this is unchanged. Left Leg Pain Score (Numeric/FACES): 8 - Related Data Allergies Allergy/AdvReac Type Severity Reaction Status Date / Time acyclovir Allergy Severe Cannot Verified 06/28/20 00:07 Remember hydroxyzine Allergy Severe Cannot Verified 06/28/20 00:07 Remember risperidone [From Risperdal] Allergy Severe Cannot Verified 06/28/20 00:07 Remember Sulfa (Sulfonamide Allergy Severe Cannot Verified 06/28/20 00:07 Antibiotics) Remember sulfamethoxazole Allergy Severe Cannot Verified 06/28/20 00:07 [From Bactrim] Remember trimethoprim [From Bactrim] Allergy Severe Cannot Verified 06/28/20 00:07 Remember Home Meds: Home Meds Albuterol Sulfate [Albuterol Sulfate Hfa] 2 puff INH TID PRN 04/23/20 [History] Benzonatate [Tessalon Perle] 100 mg PO TID PRN 04/23/20 [History] Famotidine [Pepcid] 20 mg PO DAILY 04/23/20 [History] Lutein/Minerals/Vit A,C & E [Ocuvite] 1 tab PO DAILY 04/23/20 [History] amLODIPine [Norvasc] 5 mg PO DAILY 04/23/20 [History] Acetaminophen 325 mg PO Q4H PRN 06/24/20 [History] Benzocaine [Anbesol 20% Maximum Strength] 1 applic PO QID PRN 06/24/20 [History] Brexpiprazole [Rexulti] 1 mg PO DAILY 06/24/20 [History] Calcium Carbonate [Antacid Extra Strength] 300 mg PO DAILY PRN 06/24/20 [History] Cyanocobalamin (Vitamin B-12) [Vitamin B-12] 100 mcg PO DAILY 06/24/20 [History] Dextromethorphan/guaiFENesin [Robitussin DM] 10 ml PO Q4H PRN 06/24/20 [History] Ferrous Sulfate 325 mg PO DAILY 06/24/20 [History] Fluticasone Propionate [Flonase Allergy Relief] 2 spray NASBOTH DAILY 06/24/20 [History] Furosemide [Lasix] 20 mg PO DAILY 06/24/20 [History] Hydrocortisone 1 enema RECTAL TID PRN 06/24/20 [History] LORazepam [Lorazepam] 0.5 mg PO TID 06/24/20 [History] Losartan [Cozaar] 100 mg PO DAILY 06/24/20 [History] Lytes/Yerba Lillian [Mouthkote Oral Jordan] 2 spray PO Q4H PRN 06/24/20 [History] Magnesium Hydroxide [Milk of Magnesia] 30 ml PO DAILY PRN 06/24/20 [History] Menthol [Biofreeze] 1 applic TOP BID PRN 06/24/20 [History] Multivitamin No.43/Iron/FA [Vinate Care] 1 tab PO DAILY 06/24/20 [History] Oxymetazoline HCl [Nasal Jordan Original] 1 spray JOHANNY TID 06/24/20 [History] Polyvinyl Alcohol/Povidone/Pf [Refresh Classic Eye Drops] 1 drop EYEBOTH BID 06/24/20 [History] Potassium Chloride [Klor-Con M20] 20 meq PO DAILY 06/24/20 [History] QUEtiapine Fumarate [Seroquel] 50 mg PO Q8H PRN 06/24/20 [History] Tamsulosin [Flomax] 0.4 mg PO BEDTIME 06/24/20 [History] Tiotropium [Spiriva HandiHaler] 1 cap INH DAILY 06/24/20 [History] Triamcinolone Acetonide [Triamcinolone Acetonide 0.1% Oint] 1 applic PO Q5H PRN 06/24/20 [History] polyethylene glycoL 3350 [Miralax] 17 gm PO TID PRN 06/24/20 [History] traMADol [Ultram] 50 mg PO BID PRN 06/24/20 [History] Past Medical History HEENT History: Reports: Other (See Below) Other HEENT History: dry eyes, chronic rhinitis Cardiovascular History: Reports: Hypertension Respiratory History: Reports: COPD Gastrointestinal History: Reports: Chronic Constipation, GERD, Hemorrhoids Genitourinary History: Reports: Other (See Below) Other Genitourinary History: unspecified disorder of urinary system Psychiatric History: Reports: Anxiety, Bipolar, PTSD, Schizophrenia, Other (See Below) 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 Denies: No Symptoms Cardiovascular: Reports: No Symptoms GI/Abdominal: Reports: No Symptoms Genitourinary: Reports: No Symptoms Musculoskeletal: Reports: Foot Pain (And ankle pain) Skin: Reports: Other ED EXAM, GENERAL - Physical Exam Exam: See Below Exam Limited By: No Limitations General Appearance: Alert, No Apparent Distress Head: Atraumatic, Normocephalic Neck: Normal Inspection, Supple, Non-Tender, Full Range of Motion Respiratory/Chest: No Respiratory Distress, Lungs Clear, Normal Breath Sounds Cardiovascular: Regular Rate, Rhythm, No Edema, No Murmur Extremities: Other (She has some erythematous change on the medial aspect of her ankle and slightly extending up the lower leg. This could be a stasis-like dermatitis does not appear to be cellulitic is not warm I cannot exclude bruising. She has no pain with palpation on the upper calf and into the mid calf she complains of some pain in the lower calf. And certainly no soft tissue tenderness in the upper and mid calf her mid foot is tender with palpation but vaguely so.) Course - Vital Signs Last Recorded V/S: Last Vital Signs Temp 36.4 C 06/27/20 23:33 Pulse 78 06/27/20 23:33 Resp 18 06/27/20 23:33 BP 103/56 L 06/27/20 23:33 Pulse Ox 94 L 06/27/20 23:33 - Orders/Labs/Meds Orders: Active Orders 24 hr Category Date Time Status Ankle Min 3V Rt [CR] Stat Exams 06/27/20 23:41 Taken Foot 2V Rt [CR] Stat Exams 06/27/20 23:41 Taken - Re-Assessments/Exams Free Text/Narrative Re-Assessment/Exam: 06/27/20 23:56 We will x-ray her ankle and foot. 06/28/20 01:16 X-rays of her foot and ankle show no acute changes she does have some significant osteopenia and if she has continued problems perhaps a CT might show what is going on. Apparently the residential staff has some concerns about the possibility of a blood clot. She does not have generalized redness of the lower extremity soft tissue is nontender I think this is highly unlikely. Her redness involves the medial aspect of the ankle but is generally not consistent with a deep vein thrombosis. The redness extends only a few centimeters above the medial malleolus. Patient is ambulated here in the department does okay with this however makes the ankle pain worse. Interestingly when she is not walking on this she has really minimal pain. We will discharge back to the residential at this time. Departure - Departure Time of Disposition: 01:19 Disposition: DC/Tfer to [facility] 03 Clinical Impression: Pain in joint involving right ankle and foot - Discharge Information Forms: ED Department Discharge Additional Instructions: Return to the emergency room with any questions problems or worsening symptoms. Follow-up with your regular healthcare provider in 1 week if needed. Sepsis Event Note (ED) - Focused Exam Vital Signs: Vital Signs Temp Pulse Resp BP Pulse Ox 06/27/20 23:33 36.4 C 78 18 103/56 L 94 L - My Orders Last 24 Hours: My Active Orders 06/27/20 23:41 Ankle Min 3V Rt [CR] Stat Foot 2V Rt [CR] Stat - Assessment/Plan Last 24 Hours: My Active Orders 06/27/20 23:41 Ankle Min 3V Rt [CR] Stat Foot 2V Rt [CR] Stat
== END 2020-06-28 02:15 ==
LOC: JD.ED 23:26
DX: M25.571 Pain in right ankle and joints of right foot (principal); I10 Essential (primary) hypertension; J44.9 Chronic obstructive pulmonary disease, unspecified; K21.9 Gastro-esophageal reflux disease without esophagitis; F31.9 Bipolar disorder, unspecified; F41.9 Anxiety disorder, unspecified; F20.9 Schizophrenia, unspecified; Z88.8 Allergy status to other drugs, medicaments and biological substances; Z88.5 Allergy status to narcotic agent; Z88.2 Allergy status to sulfonamides; Z88.1 Allergy status to other antibiotic agents; Z79.899 Other long term (current) drug therapy
CPT/HCPCS: 73610-RT; 73620-RT; 99282; 99284

== ENCOUNTER 2020-08-06 03:05 | Emergency (ER) | payer MEDICARE ==
--- NOTE | 2020-08-06 03:34 | EDM.PDOC ---
ED HPI GENERAL MEDICAL PROBLEM - General Chief Complaint: Fever Stated Complaint: [facility] Time Seen by Provider: 08/06/20 03:15 Source of Information: Reports: Patient History Limitations: Reports: No Limitations - History of Present Illness INITIAL COMMENTS - FREE TEXT/NARRATIVE: Ms. Gandara is a very pleasant 74-year-old woman who is now brought to the ED by EMS from [facility] for an "increased temp" and lethargy. According to custodial forms, the patient had a temperature of 99.2 degrees, and was lethargic tonight. Residence at [facility] are swabbed for the SARS-CoV-2 virus twice a week; the patient's most recent test from either or Thursday last week has not yet resulted. Here in the ED, the patient is found to be hemodynamically stable, afebrile, saturating 96% on 1.5 L of oxygen per nasal cannula, her norm. She was helped to a bedside commode by Sonja BASS, however, Silvia tells me that the patient was very stable on her feet and did not require any physical assistance. She is not lethargic. The patient tells me that she gets nosebleeds sometimes. Otherwise, she denies having a recent fever, chills, sore throat, ear pain, nasal or sinus congestion, cough, dyspnea, chest pain, palpitations, nausea, vomiting, constipation, diarrhea, abdominal pain, urinary symptoms, recent weight gain or weight loss, recent bloody bowel movements or black bowel movements, recent joint aches, headaches, or rashes. The patient's PCP is Dr. Matt Rivas. - Related Data Allergies Allergy/AdvReac Type Severity Reaction Status Date / Time acyclovir Allergy Severe Cannot Verified 08/06/20 03:09 Remember hydroxyzine Allergy Severe Cannot Verified 08/06/20 03:09 Remember risperidone [From Risperdal] Allergy Severe Cannot Verified 08/06/20 03:09 Remember Sulfa (Sulfonamide Allergy Severe Cannot Verified 08/06/20 03:09 Antibiotics) Remember sulfamethoxazole Allergy Severe Cannot Verified 08/06/20 03:09 [From Bactrim] Remember trimethoprim [From Bactrim] Allergy Severe Cannot Verified 08/06/20 03:09 Remember Home Meds: Home Meds Albuterol Sulfate [Albuterol Sulfate Hfa] 2 puff INH TID PRN 04/23/20 [History] Famotidine [Pepcid] 20 mg PO DAILY 04/23/20 [History] Lutein/Minerals/Vit A,C & E [Ocuvite] 1 tab PO DAILY 04/23/20 [History] amLODIPine [Norvasc] 5 mg PO DAILY 04/23/20 [History] Acetaminophen 650 mg PO Q4H PRN 06/24/20 [History] Benzocaine [Anbesol 20% Maximum Strength] 1 applic PO QID PRN 06/24/20 [History] Brexpiprazole [Rexulti] 4 mg PO DAILY 06/24/20 [History] Cyanocobalamin (Vitamin B-12) [Vitamin B-12] 100 mcg PO DAILY 06/24/20 [History] Dextromethorphan/guaiFENesin [Robitussin DM] 10 ml PO Q4H PRN 06/24/20 [History] Ferrous Sulfate 325 mg PO DAILY 06/24/20 [History] Fluticasone Propionate [Flonase Allergy Relief] 2 spray NASBOTH DAILY 06/24/20 [History] Furosemide [Lasix] 20 mg PO DAILY 06/24/20 [History] Hydrocortisone 1 enema RECTAL TID PRN 06/24/20 [History] LORazepam [Lorazepam] 0.5 mg PO TID 06/24/20 [History] Losartan [Cozaar] 100 mg PO DAILY 06/24/20 [History] Lytes/Yerba Lillian [Mouthkote Oral Bard] 2 spray PO Q4H PRN 06/24/20 [History] Magnesium Hydroxide [Milk of Magnesia] 30 ml PO DAILY PRN 06/24/20 [History] Menthol [Biofreeze] 1 applic TOP BID PRN 06/24/20 [History] Multivitamin No.43/Iron/FA [Vinate Care] 1 tab PO DAILY 06/24/20 [History] Polyvinyl Alcohol/Povidone/Pf [Refresh Classic Eye Drops] 1 drop EYEBOTH BID 06/24/20 [History] Potassium Chloride [Klor-Con M20] 20 meq PO DAILY 06/24/20 [History] Tamsulosin [Flomax] 0.4 mg PO BEDTIME 06/24/20 [History] Tiotropium [Spiriva HandiHaler] 1 cap INH DAILY 06/24/20 [History] Triamcinolone Acetonide [Triamcinolone Acetonide 0.1% Oint] 1 applic PO Q5H PRN 06/24/20 [History] polyethylene glycoL 3350 [Miralax] 17 gm PO TID PRN 06/24/20 [History] traMADol [Ultram] 50 mg PO BID PRN 06/24/20 [History] Benzocaine/Menthol [Cepacol Sore Throat Lozenge] 1 each MM Q2H 08/06/20 [History] Brimonidine [Alphagan P 0.1% Ophth Soln] 1 drop EYEBOTH DAILY PRN 08/06/20 [History] Mag Hydrox/Aluminum Hyd/Simeth [Antacid Liquid] 30 ml PO ASDIRECTED PRN 08/06/20 [History] Metoprolol Succinate [Toprol XL] 25 mg PO DAILY 08/06/20 [History] Past Medical History HEENT History: Reports: Other (See Below) Other HEENT History: dry eyes, chronic rhinitis Cardiovascular History: Reports: Hypertension Respiratory History: Reports: COPD Gastrointestinal History: Reports: Chronic Constipation, GERD, Hemorrhoids Genitourinary History: Reports: Other (See Below) Other Genitourinary History: unspecified disorder of urinary system Psychiatric History: Reports: Anxiety, Bipolar, PTSD, Schizophrenia, Other (See Below) Other Psychiatric History: mixed obsessional thoughts and acts Endocrine/Metabolic History: Reports: Hypokalemia Hematologic History: Reports: Other (See Below) Other Hematologic History: Vitamin D deficiency - Infectious Disease History Infectious Disease History: Reports: Chicken Pox Social & Family History - Family History Family Medical History: No Pertinent Family History - Tobacco Use Tobacco Use Status *Q: Unknown Ever Used Tobacco - Caffeine Use Caffeine Use: Reports: Soda, Tea - Living Situation & Occupation Living situation: Reports: Extended Care Facility ([facility]) Occupation: Retired ED ROS GENERAL - Review of Systems Review Of Systems: Comprehensive ROS is negative, except as noted in HPI. ED EXAM, GENERAL - Physical Exam Exam: See Below Exam Limited By: No Limitations General Appearance: Alert, WD/WN, No Apparent Distress Eye Exam: Bilateral Eye: EOMI, Normal Inspection Ears: Normal External Exam, Hearing Grossly Normal Nose: Normal Inspection Throat/Mouth: Normal Inspection, Normal Lips, Normal Voice, No Airway Compromise Head: Atraumatic, Normocephalic Neck: Normal Inspection, Full Range of Motion Respiratory/Chest: No Respiratory Distress, Lungs Clear, Normal Breath Sounds, No Accessory Muscle Use Cardiovascular: Normal Peripheral Pulses, Regular Rate, Rhythm, No Gallop, No JVD, No Murmur, No Rub Peripheral Pulses: 3+: Radial (L), Radial (R) GI/Abdominal: Normal Bowel Sounds, Soft, Non-Tender, No Organomegaly, No Distention, No Abnormal Bruit, No Mass Back Exam: Normal Inspection, Full Range of Motion, NT Extremities: Normal Inspection, Normal Range of Motion, Normal Capillary Refill Neurological: Alert, Oriented, Normal Cognition, No Motor/Sensory Deficits Psychiatric: Normal Affect Skin Exam: Warm, Dry, Intact, Normal Color, No Rash Course - Vital Signs Last Recorded V/S: Last Vital Signs Temp 37.0 C 08/06/20 03:09 Pulse 80 08/06/20 03:09 Resp 17 08/06/20 03:09 BP 132/71 08/06/20 03:09 Pulse Ox 96 08/06/20 03:09 - Orders/Labs/Meds Orders: Active Orders 24 hr Category Date Time Status Chest 2V [CR] Stat Exams 08/06/20 03:22 Taken Chest w Cont [CT] Stat Exams 08/06/20 05:43 Ordered Head w Cont [CT] Stat Exams 08/06/20 05:53 Ordered UA W/MICROSCOPIC [URIN] Stat Lab 08/06/20 03:22 Ordered Sodium Chloride 0.9% [Normal Saline] 1,000 ml Med 08/06/20 05:45 Active IV ASDIRECTED Medication Orders Sodium Chloride (Normal Saline) 1,000 mls @ 100 mls/hr IV ASDIRECTED KELLY Last Admin: 08/06/20 06:23 Dose: 100 mls/hr Documented by: JENNYFER Labs: Laboratory Tests 08/06/20 08/06/20 Range/Units 03:49 03:49 WBC 4.06 (3.98-10.04) K/mm3 RBC 3.12 L (3.98-5.22) M/mm3 Hgb 8.5 L D (11.2-15.7) gm/dl Hct 27.4 L (34.1-44.9) % MCV 87.8 (79.4-94.8) fl MCH 27.2 (25.6-32.2) pg MCHC 31.0 L (32.2-35.5) g/dl RDW Std Deviation 59.5 H (36.4-46.3) fL Plt Count 56 L (182-369) K/mm3 MPV 10.2 (9.4-12.3) fl Neutrophils % (Manual) 53 (40-60) % Band Neutrophils % 0 (0-10) % Lymphocytes % (Manual) 35 (20-40) % Atypical Lymphs % 3 % Immat Monocytes % (Man) 0 Monocytes % (Manual) 8 (2-10) % Eosinophils % (Manual) 1 (0.7-5.8) % Basophils % (Manual) 0 L (0.1-1.2) Metamyelocytes % 0 Myelocytes % 0 Promyelocytes % 0 Blast Cells % 0 Plasma Cell % (Manual) 0 Nucleated RBCs 0.0 % Platelet Estimate Marked dec Anisocytosis 2+ moderate RBC Morph Comment Not Reportable Sodium 138 (136-145) mEq/L Potassium 4.0 (3.5-5.1) mEq/L Chloride 105 (98-107) mEq/L Carbon Dioxide 23 (21-32) mEq/L Anion Gap 14.0 (5-15) BUN 39 H (7-18) mg/dL Creatinine 1.0 (0.55-1.02) mg/dL Est Cr Clr Drug Dosing TNP Estimated GFR (MDRD) 55 (>60) mL/min BUN/Creatinine Ratio 39.0 H (14-18) Glucose 105 (83-115) mg/dL Calcium 9.3 (8.5-10.1) mg/dL Magnesium 1.9 (1.8-2.4) mg/dl Total Bilirubin 0.3 (0.2-1.0) mg/dL AST 36 (15-37) U/L ALT 24 (14-59) U/L Alkaline Phosphatase 116 (46-116) U/L Total Protein 9.4 H (6.4-8.2) g/dl Albumin 1.5 L (3.4-5.0) g/dl Globulin 7.9 gm/dL Albumin/Globulin Ratio 0.2 L (1-2) Meds: Medications Generic Name Dose Route Start Last Admin Trade Name Kami PRN Reason Stop Dose Admin Sodium Chloride 1,000 mls @ 100 mls/hr 08/06/20 05:45 08/06/20 06:23 Normal Saline IV 100 mls/hr ASDIRECTED [facility] Administration - Re-Assessments/Exams Free Text/Narrative Re-Assessment/Exam: 08/06/20 03:29 I have ordered some blood tests, a urinalysis, and a chest x-ray, to see if anything is abnormal. 08/06/20 05:38 The patient's H/H is depressed at 8.5/27.4, with thrombocytopenia of 56,000. Her BUN is elevated at 39 with a Cr of 1.0. The remainder of her blood tests are unremarkable. 2-view chest radiograph is read by [facility] as: 1. Large left lung mass measuring 3 cm in the left lower lung. CT scan would be helpful to confirm this. 2. COPD. 3. Chronic interstitial lung disease in both lung bases. The patient underwent a chest radiograph on 06/24/2020, however, the left lower opacity was interpreted as an infiltrate at that time. It does not appear that a mass was suspected. I will therefore order a CT of the chest with IV contrast along with some IV fluid. 08/06/20 05:54 Notified that the patient became unresponsive just a few minutes ago. Immediately prior, the patient was conversant, however, she is now unresponsive, with some gurgling breathing. Her oxygen saturation is still 97% on room air, and the patient appears to be breathing well enough, but only with jaw thrust by Sonja BASS - the patient is unable to maintain her own airway if the jaw thrust is not maintained. Both of her pupils are s/p cataract surgery. I am concerned that the patient has suffered a stroke - perhaps a hemorrhage related to a metastasis to the brain. I have therefore ordered a CT of the head with IV contrast. Of note, the patient's medication list does not include an anticoagulant. 08/06/20 06:00 Paperwork from [facility] indicates that she is DNR level 2 = no CPR, no intubation, no mechanical ventilation. Because she is unresponsive, she is not a candidate for BiPAP. I placed a 28 Malay nasopharyngeal airway in her right nostril. 08/06/20 06:15 The nasopharyngeal airway did not appear to be doing anything - she continues to oxygenate well with jaw thrust, but her airway does not remain patent when the jaw thrust is relaxed. I therefore removed the nasopharyngeal airway and placed an oropharyngeal airway. 08/06/20 06:43 The oropharyngeal airway does not appear to be working all that well. We placed a larger oropharyngeal airway, but she is still unable to maintain an airway without a manual jaw thrust. 08/06/20 06:54 Case discussed with Leonor Ulrich, the patient's court-appointed guardian, at 06:44. She stated that the patient has a history of breast cancer, and that there is a "spot" on her lung that there was some speculation could have a been related to her prior breast cancer. She confirmed that the patient is DNR/DNI, that those are the patient's wishes, and that we should not rescind that status. I explained that we will not be able to continue to perform a jaw thrust on the patient indefinitely, and that at some point we will need to stop doing that, which will likely result in the patient's expiring unless she is able to maintain her own airway. Ms. Ulrich expressed understanding. 08/06/20 06:59 At present, the patient's SpO2 is 83% on a non-rebreather mask without jaw th rust. Her oxygen saturation is slowly decreasing. 08/06/20 07:10 I sat with the patient. She became pulseless, then developed an agonal rhythm on the customer service agent with occasional agonal attempts at breathing. She had no heart tones on auscultation and no palpable pulse. No spontaneous efforts at respiration. No response to noxious stimuli. I pronounced the patient at 07:09. 08/06/20 07:15 I notified Ms. Ulrich of the patient's passing. She is in [place], [place], and does not know of any homes in this area. 08/06/20 07:17 Notified by Shakila BASS that paperwork from [facility] indicates a home of choice. Shakila will notify both the home and Ms. Ulrich. Departure - Departure Time of Disposition: 07:18 Disposition: 20 Clinical Impression: Lung tumor, Stroke - Discharge Information *PRESCRIPTION DRUG MONITORING PROGRAM REVIEWED*: Not Applicable *COPY OF PRESCRIPTION DRUG MONITORING REPORT IN PATIENT ROBBIN: Not Applicable Referrals: Matt Rivas MD [Primary Care Provider] - Forms: ED Department Discharge Sepsis Event Note (ED) - Evaluation Sepsis Screening Result: No Definite Risk - Focused Exam Vital Signs: Vital Signs Temp Pulse Resp BP Pulse Ox 08/06/20 03:09 37.0 C 80 17 132/71 96 - My Orders Last 24 Hours: My Active Orders 08/06/20 03:22 Chest 2V [CR] Stat UA W/MICROSCOPIC [URIN] Stat 08/06/20 05:43 Chest w Cont [CT] Stat 08/06/20 05:45 Sodium Chloride 0.9% [Normal Saline] 1,000 ml IV ASDIRECTED 08/06/20 05:53 Head w Cont [CT] Stat - Assessment/Plan Last 24 Hours: My Active Orders 08/06/20 03:22 Chest 2V [CR] Stat UA W/MICROSCOPIC [URIN] Stat 08/06/20 05:43 Chest w Cont [CT] Stat 08/06/20 05:45 Sodium Chloride 0.9% [Normal Saline] 1,000 ml IV ASDIRECTED 08/06/20 05:53 Head w Cont [CT] Stat
[2020-08-06] MEDS ORDERED: Sodium Chloride 0.9% 1,000 ML IV SCH (05:45)
--- NOTE | 2020-08-06 10:27 | CR ---
PROCEDURE INFORMATION: Exam: XR Chest, 2 Views Exam date and time: 08/06/2020 3:37 AM Age: 74 years old Clinical indication: Chest pain; Type not specified; Additional info: Previous reports scanned for your review TECHNIQUE: Imaging protocol: XR of the chest Views: 2 views. COMPARISON: CR Chest 1V Frontal 06/24/2020 3:12 PM FINDINGS: Lungs: Large left lung mass measuring 3 cm in the left lower lung. COPD. Chronic interstitial lung disease in both lung bases. Pleural space: Unremarkable. No pleural effusion. No pneumothorax. Heart/Mediastinum: Unremarkable. No cardiomegaly. Bones/joints: Unremarkable. IMPRESSION: 1. Large left lung mass measuring 3 cm in the left lower lung. CT scan would be helpful to confirm this. 2. COPD. 3. Chronic interstitial lung disease in both lung bases. Thank you for allowing us to participate in the care of your patient. Dictated and Authenticated by: Calos Peña MD 08/06/2020 5:07 AM Central Time ([place] & [place]) EDDA
== END 2020-08-06 09:00 | disposition expired ==
LOC: JD.ED 03:05
DX: I63.9 Cerebral infarction, unspecified (principal); C34.91 Malignant neoplasm of unspecified part of right bronchus or lung; I10 Essential (primary) hypertension; J44.9 Chronic obstructive pulmonary disease, unspecified; F41.9 Anxiety disorder, unspecified; F31.9 Bipolar disorder, unspecified; K21.9 Gastro-esophageal reflux disease without esophagitis; Z88.2 Allergy status to sulfonamides; Z88.1 Allergy status to other antibiotic agents; Z88.8 Allergy status to other drugs, medicaments and biological substances; Z79.899 Other long term (current) drug therapy
CPT/HCPCS: 36415; 43752; 71046; 80053; 83735; 85007; 85027; 99285; J7030